=== PATIENT | female | born 1995 ===

== ENCOUNTER 2020-05-18 21:01 | Emergency (ER) | payer MEDICAID ==
[~2020-05-18] VITALS: Ht 162.6 cm; Wt 68.0 kg
[2020-05-18] MEDS ORDERED: OLANZAPINE 5MG TABLET ODT PO ONE (22:45)
[2020-05-18 23:00] LABS: BASOPHILS % 0.5 % (0.0-2.0); EOSINOPHILS % 0.7 % (0.0-5.0); HEMATOCRIT. 44.6 % (36.0-48.0); MEAN CORPUSCULAR HEMOGLOBIN 30.7 pg (28.0-32.0); MEAN CORPUSCULAR VOLUME 91.5 fL (81.0-99.0); MONOCYTES % 6.9 % (2.0-8.0); NEUTROPHILS % 66.9 % (40.0-76.0); PLATELET 203 x1000/uL (130-400); RED BLOOD CELL COUNT 4.88 mill/uL (4.2-5.4); RED CELL DISTRIBUTION WIDTH 13.2 % (11.6-14.6)
[2020-05-18 23:06] LABS: CHLORIDE 107 mEq/L (98-107)
[2020-05-18 23:11] LABS: CLARITY URINE CLEAR (CLEAR); COLOR URINE YELLOW (YELLOW); ETHANOL BLOOD < 10 mg/dL; KETONES URINE NEGATIVE (NEGATIVE); LEUKOCYTE ESTERASE URINE NEGATIVE (NEGATIVE); NITRITE URINE NEGATIVE (NEGATIVE); OCCULT BLOOD URINE NEGATIVE (NEGATIVE); PH URINE 5.5 (4.5-8.0); PROTEIN URINE NEGATIVE (NEGATIVE); SPECIFIC GRAVITY URINE 1.022 (1.005-1.030); UROBILINOGEN URINE 0.2 E.U./dL (0.2-1.0)
[2020-05-18 23:28] LABS: *AMPHETAMINES SCREEN URINE NEGATIVE (NEGATIVE); *BARBITURATES SCREEN URINE NEGATIVE (NEGATIVE); *BENZODIAZEPINES SCREEN URINE NEGATIVE (NEGATIVE); *COCAINE SCREEN URINE NEGATIVE (NEGATIVE); OPIATES URINE SCREEN NEGATIVE (NEGATIVE); PHENCYCLIDINE URINE SCREEN NEGATIVE (NEGATIVE)
[2020-05-18 23:29] LABS: METHADONE URINE SCREEN NEGATIVE (NEGATIVE)
[2020-05-18] MEDS ORDERED: OLANZAPINE 10 MG/VIAL IM ONE (23:30)
[2020-05-18 23:42] LABS: CANNABINOID URINE SCREEN PRESUMTIVE POSITIVE (NEGATIVE)
[2020-05-19] MEDS: OLANZAPINE 5MG TABLET ODT PO SCH ×2 (11:30→17:00)
[2020-05-20] MEDS: OLANZAPINE 5MG TABLET ODT PO SCH (09:40)
[2020-05-20 13:55] VITALS: BP 116/68
== END 2020-05-20 13:57 | disposition home or self-care (01) ==
LOC: ER 21:01
DX: R45.851 Suicidal ideations (principal); I49.9 Cardiac arrhythmia, unspecified
CPT/HCPCS: 36415; 80053; 80305; 80307; 80320; 80329; 81003; 85025; 93005; 99285; J3490; G0480